=== PATIENT | female | born 1985 | race Caucasian/White ===

== ENCOUNTER 2016-11-01 13:37 | Emergency (ER) | payer BC ==
[2016-11-01 14:21] VITALS: BP 105/62
--- NOTE | 2016-11-01 14:59 | UC ---
Neck Pain HPI - HPI Summary HPI Summary: Patient presents to the with CC of neck discomfort radiating to the bilateral shoulders. She notes to a deformity in her neck where the neck is shifted off the to side. She states this occurred last year and spontaneously resolved. She notes to muscle aches worse at night and better during the day. Worse with rotation and flexion and extension, better with rest. Denies numbness or tingling. Denies CASSIDY, neck stiffness or photophobia. She is otherwise healthy and takes no medications. - History of Current Complaint Hx Obtained From: Patient Hx Last Menstrual Period: 10/25/16 ?: No Onset/Duration Of Injury/Symptoms: Hours Mechanism Of Injury: No Known Trauma Timing: Constant Onset/Duration: Sudden Onset Severity: Mild Pain Intensity: 2 Pain Scale Used: 0-10 Numeric Location: Discrete At: - bilateral shoulder Aggravating Factors: Position Alleviating Factors: Nothing Associated Signs & Symptoms: Positive: Negative - Risk Factors Meningitis Risk Factors: Negative <Nevaeh Cowan - Last Filed: 11/01/16 14:53> <Aleida Alamo - Last Filed: 11/01/16 17:48> - History of Current Complaint Chief Complaint: UCBackPain Stated Complaint: NECK PAIN Time Seen by Provider: 11/01/16 14:31 - Allergies/Home Medications Allergies/Adverse Reactions: Allergies Allergy/AdvReac Type Severity Reaction Status Date / Time No Known Allergies Allergy Verified 11/01/16 14:21 PMH/Surg Hx/FS Hx/Imm Hx Previously Healthy: Yes - Surgical History Surgical History: Yes Surgery Procedure, Year, and Place: R and L knee meniscus repair, deviated septum repair - Social History Occupation: Employed Full-time Lives: With Family Alcohol Use: Occasionally Substance Use Type: None Smoking Status (MU): Never Smoked Tobacco <Nevaeh Cowan - Last Filed: 11/01/16 14:53> Review Of Systems Constitutional: Positive: Negative. Negative: Fever, Fatigue Eyes: Positive: Negative Respiratory: Positive: Negative. Negative: Shortness Of Breath Cardiovascular: Positive: Negative. Negative: Palpitations Musculoskeletal: Positive: Arthralgia - bilateral neck pain without enlarged LN Neurological: Positive: Negative Psychological: Positive: Negative All Other Systems Reviewed And Are Negative: Yes <Nevaeh Cowan - Last Filed: 11/01/16 14:53> Physical Exam Triage Information Reviewed: Yes Appearance: Well-Appearing, No Pain Distress, Well-Nourished Vital Signs: Initial Vital Signs Temp 98.9 F 11/01/16 14:14 Pulse 75 11/01/16 14:14 Resp 14 11/01/16 14:14 BP 105/62 11/01/16 14:14 Pulse Ox 99 11/01/16 14:14 Vital Signs Reviewed: Yes Eye Exam: Normal Eyes: Positive: Conjunctiva Clear Neck: Positive: Tenderness @ - bilateral neck radiating to the right shoulders Respiratory Exam: Normal Respiratory: Positive: Chest non-tender, Lungs clear Cardiovascular Exam: Normal Cardiovascular: Positive: RRR Musculoskeletal: Positive: ROM Limited @ - unable to rotate to the left Psychological Exam: Normal Psychological: Positive: Normal Response To Family Skin Exam: Normal <Nevaeh Cowan - Last Filed: 11/01/16 14:53> Vital Signs: Initial Vital Signs Temp 98.9 F 11/01/16 14:14 Pulse 75 11/01/16 14:14 Resp 14 11/01/16 14:14 BP 105/62 11/01/16 14:14 Pulse Ox 99 11/01/16 14:14 <Aleida Alamo - Last Filed: 11/01/16 17:48> Neck Pain Course/Dx - Course Course Of Treatment: Patient has no medications to review. Flexeril prescribed for muscle aches and tension associated with neck pain. This medication was reviewed. She is encouraged to follow up with a chiropractor. Denies any other symptoms and is OK for discharge. - Differential Dx/Diagnosis Differential Dx/HQI/PQRI: Sprain, Strain, Torticollis Provider Diagnoses: Neck Pain <Nevaeh Cowan - Last Filed: 11/01/16 14:53> Discharge <Nevaeh Cowan - Last Filed: 11/01/16 14:53> <Aleida lAamo - Last Filed: 11/01/16 17:48> - Discharge Plan Condition: Stable Disposition: HOME Prescriptions: Cyclobenzaprine TAB* [Flexeril TAB*] 10 mg PO BID PRN #10 tab PRN Reason: Pain Patient Education Materials: Acute Neck Pain (ED) Referrals: Yogesh Antony MD [Medical Doctor] - Additional Instructions: [facility] [address], [place] [facility] [address] [facility] with a [facility]ractor for neck pain Attestation Statement User Type: Provider - I was available for consult. This patient was seen by the [facility]. The patient was not presented to, seen by, or examined by me. -Cynthia <Aleida Alamo - Last Filed: 11/01/16 17:48>
== END 2016-11-01 15:40 | disposition home or self-care (01) ==
LOC: UCEAST 13:37
DX: M54.2 Cervicalgia (principal)
CPT/HCPCS: 99212; G0463

== ENCOUNTER 2017-09-15 20:16 | Emergency (ER) | payer BC ==
[2017-09-15 21:18] VITALS: BP 114/69
[2017-09-15] MEDS ORDERED: Cephalexin CAP* 500 MG PO ONE (21:30)
--- NOTE | 2017-09-15 21:31 | UC ---
Skin Complaint HPI - HPI Summary HPI Summary: large abrasion 5 days ago now increasing tenderness and erythema on medial aspect of right foot----she fell - History of Current Complaint Chief Complaint: UCSkin Time Seen by Provider: 09/15/17 21:23 Stated Complaint: FOOT INJURY SKIN COMPLAINT Hx Obtained From: Patient Hx Last Menstrual Period: 10/25/16 Onset/Duration: Sudden Onset, Lasting Days - 5, Worse Since - wound occured Skin Exposure Onset/Duration: Days Ago - 5 Pain Intensity: 6 Pain Scale Used: 0-10 Numeric Location: Discrete - right medial foot Character: Pain, Redness Aggravating Factor(s): Nothing Alleviating Factor(s): Nothing Associated Signs & Symptoms: Positive: Tenderness Related History: Trauma - Allergy/Home Medications Allergies/Adverse Reactions: Allergies Allergy/AdvReac Type Severity Reaction Status Date / Time No Known Allergies Allergy Verified 09/15/17 21:19 Home Medications: Home Medications Pnv No.103/Folic/Om3s/Fish Oil [ Gummies] 1 chw PO DAILY 09/15/17 [ History Confirmed 09/15/17] Review of Systems Constitutional: Negative Skin: Other - 3 cm diameter wound abrasion right medial foot 5 days ago now with worsening redness Eyes: Negative ENT: Negative Respiratory: Negative Cardiovascular: Negative Gastrointestinal: Negative Genitourinary: Negative Motor: Negative Neurovascular: Negative Musculoskeletal: Negative Neurological: Negative Psychological: Negative Is Patient Immunocompromised?: No All Other Systems Reviewed And Are Negative: Yes PMH/Surg Hx/FS Hx/Imm Hx Previously Healthy: Yes - Surgical History Surgical History: Yes Surgery Procedure, Year, and Place: R and L knee meniscus repair, deviated septum repair, c-sec X1 - Family History Known Family History: Positive: None - Social History Occupation: Employed Part-time Lives: With Family Alcohol Use: None Substance Use Type: None Smoking Status (MU): Never Smoked Tobacco Physical Exam Triage Information Reviewed: Yes Appearance: Well-Appearing, No Pain Distress, Well-Nourished Vital Signs: Initial Vital Signs Temp 98.5 F 09/15/17 21:13 Pulse 77 09/15/17 21:13 Resp 16 09/15/17 21:13 BP 114/69 09/15/17 21:13 Pulse Ox 100 09/15/17 21:13 Vital Signs Reviewed: Yes Eye Exam: Normal Eyes: Positive: Conjunctiva Clear ENT Exam: Normal ENT: Positive: Normal ENT inspection, Hearing grossly normal. Negative: Trismus , Muffled voice, Hoarse voice, Dental tenderness, Sinus tenderness Dental Exam: Normal Neck exam: Normal Neck: Positive: Supple, Nontender, No Lymphadenopathy Respiratory Exam: Normal Respiratory: Positive: Chest non-tender, No respiratory distress, No accessory muscle use Cardiovascular Exam: Normal Cardiovascular: Positive: RRR, Pulses Normal, Brisk Capillary Refill Abdominal Exam: Normal Musculoskeletal Exam: Normal Musculoskeletal: Positive: Strength Intact, ROM Intact, No Edema Neurological Exam: Normal Neurological: Positive: Alert, Muscle Tone Normal Psychological Exam: Normal Skin Exam: Normal Skin: Positive: Other - 3 cm skin abrasion scabbed with increasing erythema Course/Dx - Course Course Of Treatment: soap and water wash , dsd, elevated, warm copress, keflex follow with pcp prn - Diagnoses Provider Diagnoses: wound infection right foot Discharge - Sign-Out/Discharge Documenting (check all that apply): Patient Departure - Discharge Plan Condition: Stable Disposition: HOME Prescriptions: Cephalexin CAP* [Keflex CAP*] 500 mg PO QID #20 cap Patient Education Materials: Wound Infection (ED), Warm Compress or Soak (ED), Acute Wounds (ED) Referrals: Kayleen Foley MD [Primary Care Provider] - If Needed - Billing Disposition and Condition Condition: STABLE Disposition: Home
== END 2017-09-15 22:00 | disposition home or self-care (01) ==
LOC: UCEAST 20:16
DX: S90.811A Abrasion, right foot, initial encounter (principal); L08.9 Local infection of the skin and subcutaneous tissue, unspecified; X58.XXXA Exposure to other specified factors, initial encounter; Y93.9 Activity, unspecified; Y92.9 Unspecified place or not applicable
CPT/HCPCS: 99212; A9270-GY; G0463

== ENCOUNTER 2017-12-10 08:30 | Inpatient (IN) | payer BC ==
--- NOTE | 2017-12-10 10:10 | HP ---
General Information - Reason for Visit Labor induction - General Information Maternal Age: 32 Grav: 3 Para: 2 SAB: 0 IEA: 0 Estimated Due Date: 12/09/17 Determined By: LMP Maternal Blood Type and Rh: B Positive - Results this Serology/RPR Result: Non-Reactive Rubella Result: Immune HBsAg Result: Negative HIV Result: Negative GBS Culture Result: Negative Past Medical History Delivery History: Hx Uncomplicated Vaginal Delivery, See Records Pertinent Past Medical History: See Records Pertinent Past Surgical History: See Records Pertinent Family History: Non-Contributory - Antepartal Records Antepartal Records: Reviewed, Complicated by: - desires TOLAC/ h/o successful vaginal after seciton Exam Allergies/Adverse Reactions: Allergies No Known Allergies Allergy (Verified 09/15/17 21:19) Vital Signs 12/10/17 08:53 Temperature 98.9 F Pulse Rate 78 Respiratory 18 Rate Blood Pressure 111/73 (mmHg) O2 Sat by Pulse 100 Oximetry - Measurements Height: 5 ft 6 in Weight: 172 lb Weight in lbs: 172.797975 Body Mass Index (BMI): 27.7 Pre- Weight: 145 lb Weight Gained This : 27 lbs and 0 ozs
[2017-12-10 10:11] LABS: ABS Basophils 0.1 10^3/ul (0-0.2); ABS Eosinophils 0.1 10^3/ul (0-0.6); ABS Lymphocytes 2.3 10^3/ul (1.0-4.8); ABS Monocytes 0.5 10^3/ul (0-0.8); ABS Neutrophils 4.3 10^3/ul (1.5-7.7); ABS Nucleated RBC 0 10^3/ul; Hematocrit 27 % (35-47); Hemoglobin 8.9 g/dl (12.0-16.0); Lymphocyte % 31.3 % (25-47); Mean Corpuscular HGB Conc 33 g/dl (31-36); Mean Corpuscular Hemoglobin 25 pg (27-31); Mean Corpuscular Volume 77 fL (80-97); Mean Platelet Volume 9.9 um3 (7.4-10.4); Nucleated Red Blood Cells % 0.1; Platelet Count 163 10^3/ul (150-450); Red Blood Count 3.57 10^6/ul (4.00-5.40); Red Cell Distribution Width 15 % (10.5-15); White Blood Count 7.2 10^3/ul (3.5-10.8)
[2017-12-10] MEDS ORDERED: Oxytocin in LR* 20 UNITS/1,000 ML BAG IVPB ONE (10:13)
[2017-12-10] MEDS ORDERED: Oxytocin in LR* 20 UNITS/1,000 ML BAG IVPB SCH ×2 (11:00→14:00)
[2017-12-10] MEDS ORDERED: OBEPIDURAL* 0 ML EPIDURAL ONE (12:50)
[2017-12-10] MEDS ORDERED: fentaNYL* 50 MCG/ML 2 ML VIAL (100 MCG VIAL) ONE (13:04)
[2017-12-10] MEDS ORDERED: Bupivacaine 0.5% SDV PF* 30ML VIAL ONE (13:06)
[2017-12-10] MEDS ORDERED: Acetaminophen TAB* 325 MG PO PRN (13:37)
[2017-12-10] MEDS ORDERED: Glycerin ADULT SUPP PR PRN (13:37)
[2017-12-10] MEDS ORDERED: Dibucaine 1% 28.35 GM TUBE PR PRN (13:37)
[2017-12-10] MEDS ORDERED: Witch Hazel PAD* JAR TOPICAL PRN (13:37)
--- NOTE | 2017-12-10 13:57 | PROCNOTE ---
[facility] OB: Delivery Note - Delivery A Date of : 12/10/17 Time of : 13:23 Graff Sex: Male Weight at : 7 lb 13 oz Score 1 Minute: 9 Score 5 Minutes: 9 Gestational Age in Weeks and Days at Delivery: 40 Weeks and 1 Days Delivery Method: Spontaneous Vaginal Labor: Induced Amniotic Fluid: Clear Estimated Blood Loss: 300 Anesthesia/Analgesia: ITF/Spinal for Labor Delivered By: Krys Roper - two thumbs left hand - Nursery Level of Nursery: Regular/Bedside - Perineum Perineal Injury: Perineal Laceration, 1st Degree Perineal Injury Comment: figure of 8 repair with 3.0 vicryl - Events Delivery Events of Note: Pitocin During Labor, Supplemental O2 to Mother Delivery Events of Note Comment: successful vaginal delivery after section
[2017-12-10] MEDS ORDERED: Simethicone TAB* 80 MG TAB.CHEW PO SCH (17:30)
[2017-12-10] MEDS: Ibuprofen TAB* 600 MG PO PRN (20:18)
[2017-12-10] MEDS: Docusate CAP* 100 MG PO SCH (20:19)
[2017-12-11 06:25] LABS: ABS Basophils 0.1 10^3/ul (0-0.2); ABS Eosinophils 0.1 10^3/ul (0-0.6); ABS Lymphocytes 2.3 10^3/ul (1.0-4.8); ABS Monocytes 0.5 10^3/ul (0-0.8); ABS Neutrophils 5.5 10^3/ul (1.5-7.7); ABS Nucleated RBC 0 10^3/ul; Eosinophil % 1.2 % (0-6); Hematocrit 27 % (35-47); Hemoglobin 9.2 g/dl (12.0-16.0); Lymphocyte % 27.3 % (25-47); Mean Corpuscular HGB Conc 34 g/dl (31-36); Mean Corpuscular Hemoglobin 26 pg (27-31); Mean Corpuscular Volume 77 fL (80-97); Mean Platelet Volume 9.4 um3 (7.4-10.4); Nucleated Red Blood Cells % 0; Platelet Count 153 10^3/ul (150-450); Red Blood Count 3.58 10^6/ul (4.00-5.40); Red Cell Distribution Width 15 % (10.5-15); White Blood Count 8.4 10^3/ul (3.5-10.8)
[2017-12-11] MEDS: Ibuprofen TAB* 600 MG PO PRN ×2 (06:53→14:20)
[2017-12-11] MEDS ORDERED: Ferrous Gluconate TAB* 324 MG TAB PO SCH (09:00)
[2017-12-11] MEDS: Docusate CAP* 100 MG PO SCH (09:31)
[2017-12-11 11:56] VITALS: BP 112/64
== END 2017-12-11 15:15 | disposition home or self-care (01) | DRG 560 ==
LOC: MCHOBOUT 08:30 → MCHOB 10:25
PROVIDERS: ADMIT Obstetrics & Gynecology; ATTEND Obstetrics & Gynecology
PROC: 10E0XZZ Delivery of Products of Conception, External Approach (ICD-10-PCS; principal; 2017-12-10)
PROC: 3E033VJ Introduction of Other Hormone into Peripheral Vein, Percutaneous Approach (ICD-10-PCS; 2017-12-10)
PROC: 0HQ9XZZ Repair Perineum Skin, External Approach (ICD-10-PCS; 2017-12-10)
PROC: 10907ZC Drainage of Amniotic Fluid, Therapeutic from Products of Conception, Via Natural or Artificial Opening (ICD-10-PCS; 2017-12-10)
DX: O48.0 Post-term pregnancy (principal); Z37.0 Single live birth; O70.0 First degree perineal laceration during delivery; O34.211 Maternal care for low transverse scar from previous cesarean delivery; O90.81 Anemia of the puerperium; D64.9 Anemia, unspecified; Z3A.40 40 weeks gestation of pregnancy
CPT/HCPCS: 36415; 85025; 86850; 86900; 86901; A9270-GY; J3010

== ENCOUNTER 2018-12-13 12:55 | Emergency (ER) | payer BC, OTHER ==
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
[2018-12-13 13:30] VITALS: BP 112/67
[2018-12-13 20:13] LABS: Hepatitis B Surface Antigen Nonreactive (Nonreactive)
[2018-12-13 20:30] LABS: Hepatitis B Surface Ab Immune (Immune); Hepatitis C Antibody Negative (Negative)
[2018-12-13 21:29] LABS: HIV 4th Generation Nonreactive (Nonreactive)
== END 2018-12-13 14:25 | disposition home or self-care (01) ==
LOC: UCEAST 12:55
DX: S51.852A Open bite of left forearm, initial encounter (principal); W50.3XXA Accidental bite by another person, initial encounter; Y92.9 Unspecified place or not applicable
CPT/HCPCS: 36415; 86706; 86803; 87340; 87389; 99201; G0463

== ENCOUNTER 2023-07-02 02:47 | Inpatient (IN) ==
[2023-07-02] MEDS: Lactated Ringers 1000 ml BAG 1,000 ML IV ONE (03:49)
[2023-07-02] MEDS ORDERED: Lidocaine 1% VIAL 10 MG/ML 30 ML VIAL INJ PRN (03:51)
[2023-07-02] MEDS: Buffered Lidocaine 1% SYRIN 1 ml INTRADERM ONE (04:12)
[2023-07-02] MEDS: Lactated Ringers 1000 ml BAG 1,000 ML IV SCH (04:17)
[2023-07-02 04:19] LABS: ABS Basophils 0.1 10^3/uL (0.0-0.1); ABS Eosinophils 0.1 10^3/uL (0.0-0.5); ABS Monocytes 0.6 10^3/uL (0.0-0.9); ABS Neutrophils 6.9 10^3/uL (1.5-7.6); Hematocrit 28.7 % (35-45); Hemoglobin 9.8 g/dL (11.5-14.3); Lymphocyte % 20.9 %; Mean Corpuscular Hemoglobin 27.4 pg (27-33); Mean Corpuscular Hgb Conc 34.1 g/dL (31-36); Mean Corpuscular Volume 80.2 fL (80-97); Mean Platelet Volume 9.3 fL (7.5-11.2); Platelet Count 204 10^3/uL (150-450); Red Blood Count 3.58 10^6/uL (3.63-4.92); Red Cell Distribution Width 13.3 % (12-17); White Blood Count 9.7 10^3/uL (3.8-11.8)
[2023-07-02] MEDS: Betamethasone 6 mg/ml 5 ml VIAL IM ONE (04:21)
[2023-07-02] MEDS: Penicillin G Potassium IV 5,000,000 UNITS in NS 0.9% 100 ml BAG 100 ML IVPB ONE (04:33)
[2023-07-02 04:37] LABS: Albumin 3.4 g/dL (3.2-5.2); Albumin/Globulin Ratio 1.3 (1-3); Calcium 8.6 mg/dL (8.6-10.3); Creatinine, Serum 0.55 mg/dL (0.51-0.95); Globulin 2.7 g/dL (2-4); Potassium 3.9 mmol/L (3.5-5.0); Total Bilirubin 0.3 mg/dL (0.2-1.0); Total Protein 6.1 g/dL (6.4-8.9); eGFR CKD-EPI 121.8 (>60)
[2023-07-02 06:55] LABS: Urine Appearance Clear; Urine Bilirubin Negative (Negative); Urine Blood Trace (Negative); Urine Color Light-Yellow; Urine Glucose Negative (Negative); Urine Ketones Trace (Negative); Urine Nitrite Negative (Negative); Urine Protein Negative (Negative); Urine Specific Gravity 1.017 (1.002-1.030); Urine Urobilinogen Negative (Negative)
[2023-07-02 07:05] LABS: Urine Benzodiazepine Screen None Detected (None Detect); Urine Cannabinoids Screen None Detected (None Detect); Urine Opiates Screen None Detected (None Detect)
[2023-07-02] MEDS: Penicillin G Potassium IV 3,000,000 UNITS in NS 0.9% 100 ml BAG 100 ML IVPB SCH (08:45)
[2023-07-02 18:19] LABS: Uric Acid 4.9 mg/dL (2.3-6.6)
[2023-07-03] MEDS: Betamethasone 6 mg/ml 5 ml VIAL IM ONE (04:35)
[2023-07-03] MEDS: Penicillin G Potassium IV 3,000,000 UNITS in NS 0.9% 100 ml BAG 100 ML IVPB SCH (23:26)
[2023-07-04] MEDS: Oxytocin in LR 20,000 MILLI.UNIT/1,000 ML BAG IV SCH (08:39)
[2023-07-04] MEDS: Penicillin G Potassium IV 3,000,000 UNITS in NS 0.9% 100 ml BAG 100 ML IVPB SCH (10:41)
[2023-07-04] MEDS ORDERED: OBEPIDURAL (200 ML) 0 ML EPIDURAL ONE (13:01)
[2023-07-04] MEDS ORDERED: Lidocaine 1.5% EPI 1:200,000 30 ML SDV ONE (13:14)
[2023-07-04] MEDS ORDERED: Phenylephrine 40 mcg/mL 10mL (400mcg) SYRINGE IV PUSH PRN ×2 (13:22)
[2023-07-04] MEDS ORDERED: Sodium Citrate/Citric Acid LIQ 15 ML UDC PO PRN (13:22)
[2023-07-04] MEDS ORDERED: Lactated Ringers 1000 ml BAG 1,000 ML IV ONE (13:22)
[2023-07-04] MEDS ORDERED: Witch Hazel PAD JAR TOPICAL PRN (14:00)
[2023-07-04] MEDS ORDERED: Dibucaine 1% OINT 28.35 GM TUBE PR PRN (14:00)
[2023-07-04] MEDS ORDERED: Glycerin ADULT 2.4 gm SUPP PR PRN (14:00)
[2023-07-04] MEDS ORDERED: Lactated Ringers 1000 ml BAG 1,000 ML IV SCH ×2 (14:00)
[2023-07-04] MEDS ORDERED: Oxytocin in LR 20,000 MILLI.UNIT/1,000 ML BAG IV SCH (14:00)
[2023-07-04] MEDS ORDERED: OBEPIDURAL (200 ML) 200 ML EPIDURAL SCH (14:00)
[2023-07-05 06:00] LABS: ABS Basophils 0.1 10^3/uL (0.0-0.1); ABS Lymphocytes 2.3 10^3/uL (1.0-4.8); ABS Monocytes 0.7 10^3/uL (0.0-0.9); Eosinophil % 0.2 %; Hematocrit 26.8 % (35-45); Hemoglobin 8.9 g/dL (11.5-14.3); Lymphocyte % 25.6 %; Mean Corpuscular Hemoglobin 26.8 pg (27-33); Mean Corpuscular Hgb Conc 33.4 g/dL (31-36); Mean Corpuscular Volume 80.3 fL (80-97); Mean Platelet Volume 9.5 fL (7.5-11.2); Platelet Count 179 10^3/uL (150-450); Red Blood Count 3.33 10^6/uL (3.63-4.92); Red Cell Distribution Width 13.2 % (12-17)
[2023-07-05 08:30] VITALS: BP 117/63
== END 2023-07-05 10:19 | disposition home or self-care (01) | DRG 560 ==
LOC: MCHOBOUT 02:47 → MCHOB 04:00
PROVIDERS: ADMIT Obstetrics & Gynecology; ATTEND Obstetrics & Gynecology